=== PATIENT | male | born 1960 | race Caucasian/White ===

== ENCOUNTER → 2016-08-25 | Outpatient (REF) ==
[~2016-08-25] MED LIST: FOLIC ACID 11 MG/TA1 PO; HYDROXYURE500 MG/CAP PO; LEVOXYL0.175 MG PO; NORCO 325 MG-51 TAB PO; PRINIVIL20 MG PO; TREXALL10 MG; TYLENOL 325MG325 MG PO; XANAX 0.5MG0.5 MG PO
== END ==
LOC: ZLAB.WCH 13:08
DX: Z01.89 Encounter for other specified special examinations (principal)

== ENCOUNTER → 2016-10-27 | Outpatient (REF) ==
[2016-10-27 13:43] LABS: THYROID STIMULATING HORMONE 1.83 uIU/mL (0.465-4.680)
[2016-10-27 14:28] LABS: PSA-TOTAL 0.32 ng/mL (0-4)
== END ==
LOC: ZLAB.WCH 11:32
PROVIDERS: Internal Medicine
DX: Z01.89 Encounter for other specified special examinations (principal)
CPT/HCPCS: G0103

== ENCOUNTER → 2016-12-03 | Outpatient (CLI) | payer MEDICARE, MEDICAID | LOC: COL.PUL 11-20 08:00 | DX: R06.00 Dyspnea, unspecified (principal); F17.210 Nicotine dependence, cigarettes, uncomplicated ==

== ENCOUNTER → 2016-12-14 | Outpatient (CLI) | payer MEDICARE, MEDICAID | LOC: COL.RAD 08:08 | DX: K82.8 Other specified diseases of gallbladder (principal) | CPT/HCPCS: A9537; J2805 ==

== ENCOUNTER → 2017-01-10 | Outpatient (REF) | LOC: ZLAB.WCH 17:59 | DX: Z01.89 Encounter for other specified special examinations (principal) ==

== ENCOUNTER → 2017-04-26 | Outpatient (REF) ==
[2017-04-26 21:07] LABS: THYROID STIMULATING HORMONE 19.7 uIU/mL (0.465-4.680)
[2017-04-26 21:19] LABS: C-REACTIVE PROTEIN 4.4 mg/dL (0.0-0.9)
== END ==
LOC: ZLAB.WCH 20:24
PROVIDERS: Internal Medicine
DX: Z01.89 Encounter for other specified special examinations (principal)

== ENCOUNTER → 2017-09-16 | Outpatient (REF) ==
[~2017-09-16] MED LIST changes: +AMBIEN 10MG10 MG PO; +NEXIUM 40MG40 MG PO; +TOPROL XL 50MG50 MG PO
[2017-09-16 18:56] LABS: THYROID STIMULATING HORMONE 19.4 uIU/mL (0.465-4.680)
== END ==
LOC: ZLAB.WCH 17:54
PROVIDERS: Internal Medicine
DX: Z01.89 Encounter for other specified special examinations (principal)

== ENCOUNTER → 2017-11-12 | Outpatient (REF) ==
[2017-11-12 09:33] LABS: THYROID STIMULATING HORMONE 20.1 uIU/mL (0.465-4.680)
[2017-11-12 09:34] LABS: PSA-TOTAL 0.16 ng/mL (0-4)
== END ==
LOC: ZLAB.WCH 08:37
PROVIDERS: Internal Medicine
DX: Z01.89 Encounter for other specified special examinations (principal)
CPT/HCPCS: G0103

== ENCOUNTER → 2017-12-06 | Outpatient (REF) ==
[2017-12-06 16:38] LABS: THYROID STIMULATING HORMONE 16.4 uIU/mL (0.465-4.680)
== END ==
LOC: ZLAB.WCH 15:32
PROVIDERS: Internal Medicine
DX: Z01.89 Encounter for other specified special examinations (principal)

== ENCOUNTER → 2017-12-24 | Outpatient (REF) | LOC: ZLAB.WCH 17:47 | DX: Z01.89 Encounter for other specified special examinations (principal) ==

== ENCOUNTER → 2018-01-14 | Outpatient (REF) ==
[2018-01-14 18:54] LABS: THYROID STIMULATING HORMONE 5.15 uIU/mL (0.465-4.680)
== END ==
LOC: ZLAB.WCH 18:11
PROVIDERS: Internal Medicine
DX: Z01.89 Encounter for other specified special examinations (principal)

== ENCOUNTER → 2018-02-12 | Outpatient (REF) | LOC: ZLAB.WCH 08:27 | DX: Z01.89 Encounter for other specified special examinations (principal) ==